=== PATIENT | female | born 1975 | race Caucasian/White ===

== ENCOUNTER 2024-08-28 08:36 | Outpatient (AMB) | payer MEDICAID, SELFPAY ==
[2024-08-28 08:46] VITALS: BP 118/74; PULSE 67; RESP 19; TEMP 36.2; O2SAT 96; BMI 58.5
--- NOTE | 2024-08-28 08:46 | PD.ORTHCLVIS ---
Vital signs 08/28/24 08:46 Height 1.68 m Height Method Stated Weight 164.456 kg Weight Measurement Method Standing Scale BMI 58.5 BP 118/74 Blood Pressure Source Automatic Cuff Blood Pressure Location Right Upper Arm Position Sitting Respiration 19 Pulse 67 Pulse Source Monitor Temp 97.1 F Temp Source Temporal Artery Scan Pulse Oximetry (%) 96 Oxygen Delivery Method Room Air Med/Allergies Allergies & Medications Allergies cephalexin Allergy (Verified 08/28/24 08:48) fentanyl Allergy (Verified 08/28/24 08:48) Medication Reconciliation albuterol sulfate 90 mcg/actuation aerosol inhaler 2 puff inhalation Q6H PRN 08/28/24 [History Confirmed 08/28/24] allopurinol 300 mg tablet 300 mg PO QDAY 08/28/24 [History Confirmed 08/28/24] aspirin 500 mg tablet 500 mg PO Q6H 08/28/24 [History Confirmed 08/28/24] baclofen 20 mg tablet 20 mg PO QDAY 08/28/24 [History Confirmed 08/28/24] dexlansoprazole 30 mg capsule,biphase delayed release 30 mg PO QDAY 08/28/24 [History Confirmed 08/28/24] famotidine 20 mg tablet 20 mg PO QDAY 08/28/24 [History Confirmed 08/28/24] gabapentin 300 mg capsule 300 mg PO QDAY 08/28/24 [History Confirmed 08/28/24] hydrocodone 10 mg-acetaminophen 325 mg tablet 1 tab PO Q6H PRN 08/28/24 [History Confirmed 08/28/24] levothyroxine 175 mcg capsule 175 mcg PO QDAY 08/28/24 [History Confirmed 08/28/24] magnesium oxide 500 mg PO QDAY 08/28/24 [History Confirmed 08/28/24] metformin 500 mg tablet 500 mg PO QDAY 08/28/24 [History Confirmed 08/28/24] nitroglycerin 0.4 mg sublingual tablet 0.4 mg sublingual Q5M PRN 08/28/24 [History Confirmed 08/28/24] vitamin B complex 1 tab PO QDAY 08/28/24 [History Confirmed 08/28/24] Subjective Visit Visit for: new patient and knee Immunization / Flu Flu Vaccine in the Last 12 Months: No Flu Vaccine Exclusion Criteria: No Exclusion Criteria History of Present Illness Chief complaint: bilateral knee pain Date of injury / onset of symptoms: 4 years ago And is a 48-year-old female with a complex medical history including diabetic neuropathy, fibromyalgia and bilateral knee pain worse on the right. The right knee pain has been ongoing for years. She has not had any injections. She has tried weight loss and is still working on it. He has not had any physical therapy and has tried anti-inflammatories Personal History Occupation: disabled Red flag PMH: BMI Pain Pain level (0-10): 7 Pain duration: constant Pain location: inside (medial), outside (lateral), anterior and posterior Pain quality: sharp, dull, aching, shocking and tingling Pain timing: increases with activity and stairs Associated signs & symptoms: numbness, weakness and stiffness Ambulatory data Ambulatory device: none Treatments Improvement with previous injections: No Improvement with PT: No Improvement with NSAIDS: no Review of Systems Review of Systems: All systems negative unless otherwise noted in HPI. Exam Exam Patient is in no acute distress and is cooperative with the examination today. Breathing is nonlabored. In no respiratory distress. Bilateral extremities were evaluated and demonstrates sensation intact to light touch. Palpable pedal pulses are present. No significant edema is present. Bilateral hips were examined. The patient has no pain with log roll of the hips. Internal rotation to 30 degrees and external rotation to 30 degrees is painless. Negative FADIR. The left knee was examined. The left knee is in [varus] alignment. Range of motion from [0-115] degrees. Knee is stable to varus and valgus as well as AP translation with <5mm. Patient has a [negative] McMurrays. There is [no] pain with patellofemoral compression and [no] crepitus noted. The knee is [tender] to palpation [medially]. The right knee was also examined. The right knee is in [varus] alignment. Range of motion from [0-120] degrees. Knee is stable to varus and valgus as well as AP translation with <5mm. Patient has a [negative] McMurrays. There is [no] pain with patellofemoral compression and [no] crepitus noted. The knee is [tender] to palpation [medially]. No x-rays are available to review. The patient has An x-ray report of the right knee from [facility] which states that there is severe degeneration of the right knee Assessment and Plan Problem List (1) Arthritis of right knee: Status: Acute Plan: Patient is a 48-year-old female with right knee pain and right knee arthritis who is morbidly obese. We discussed nonoperative and operative options. Given her current weight, she is not a operative candidate. We discussed cortisone injections. Her BMI is very high and we recommend weight loss. Her diabetes is Well-controlled we can just do injections at this time. We will do a right knee injection today. Recommend knee cortisone injection as patient would like to proceed with conservative treatment at this time. The risks and benefits of the procedure were reviewed with the patient and patient gave verbal consent to continue with the procedure. Procedure: performed by Dr. Mckenzie Using sterile technique the Right knee was thoroughly prepped with alcohol, and approximately 1 cc of Kenalog 40 mg/mL and 4 cc of 1% lidocaine was injected without resistance into the medial tibial femoral joint space. The patient tolerated the procedure. Plan We recommend weight loss and continued conservative management Office Procedures GNS Level of Care Nursing/Assessment Patient Status: Established Patient Nursing Assessment/Reassesment: Medication Reconciliation, Update PMH in EMR and Vital Signs Coordination of Care: Complex Care/Chronic Disease 5 or more, Education Complex Pt/Fam, Consent,records obtained, informed consent, Results/Orders obtained and Staff clarify orders Established Patient Charge Established Patient Point Assignment: 105 Established Patient Point Charge: EP Level 3 (80-115) Surgical Proc/IM SQ injection Major Surgical Procedure: Yes (KNEE INJECTION ) Medication Given Medication Given Medication Given: Yes Documented Dose Given: 4 Route: Infiitration Medication Given Medication Given Medication Given: Yes Documented Dose Given: 1 Route: Infiitration Office Meds Xylocaine 10 mg/mL (1 %) injection solution Performing Provider: Shantanu Mckenzie MD Performing Location: [facility] Administered by: Shantanu Mckenzie MD on 08/28/24 10:22 Dose Route Admin Location Dispensed Lot Number Expiration Date [facility] [place] [employer] 20 mL Infiltration 20 mL [id number] [employer] triamcinolone acetonide 40 mg/mL suspension for injection Performing Provider: Shantanu Mckenzie MD Performing Location: [facility] Administered by: Shantanu Mckenzie MD on 08/28/24 10:22 Dose Route Admin Location Dispensed Lot Number Expiration Date [employer] 40 mg intra-articular 1 mL [id number] [employer] Past Medical History Past Medical History Have you ever been diagnosed with any of the following: Musculoskeletal Problems Arthritis: Yes Fibromyalgia: Yes Endocrine Problems Diabetes Mellitus Type 2: Yes Surgical History Cholecystectomy: Yes Hysterectomy: Yes Thyroidectomy: Yes
== END 2024-08-28 09:13 | disposition home or self-care (01) ==
LOC: HODSRG 08:36
PROVIDERS: PCP Family Medicine; Referring Provider Family Medicine; Supervising Provider Orthopaedic Surgery Adult Reconstructive Orthopaedic Surgery; Visit Provider Orthopaedic Surgery Adult Reconstructive Orthopaedic Surgery
DX: M17.11 Unilateral primary osteoarthritis, right knee (principal); M25.561 Pain in right knee; E66.01 Morbid (severe) obesity due to excess calories; Z68.43 Body mass index [BMI] 50.0-59.9, adult; E11.40 Type 2 diabetes mellitus with diabetic neuropathy, unspecified; M79.7 Fibromyalgia
CPT/HCPCS: 20610; 99213; J3301; J3490; G0463